=== PATIENT | male | born 1965 | race Caucasian/White ===

== ENCOUNTER 2017-07-23 19:07 | Emergency (ER) | payer SELFPAY ==
[~2017-07-23] VITALS: Ht 170.2 cm; Wt 79.0 kg
[2017-07-23 19:38] VITALS: Ht 170.2 cm; Wt 79.0 kg
[2017-07-23] MEDS ORDERED: IBUP-1542 PO (21:33)
[2017-07-23] MEDS ORDERED: ACYC800T57 PO (21:33)
--- NOTE | 2017-07-23 21:41 | ERD ---
ER Documentation Chief Complaint Date/Time DATE: 07/23/17 TIME: 21:35 Chief Complaint rash, rt side pain x3 days. Denies injury. HPI Patient is 52-year-old male with no reported medical history presenting to the emergency department with complaints of rash in his right flank area which wraps around to his back which he has noticed for 3 days. He reports a burning sensation associated with rash. No improvement of symptoms has been seen. He is unsure whether he had chickenpox as a child. He denies fevers, chills, or other symptoms at this time. Symptoms are mild in severity. ROS All systems reviewed and are negative except as per history of present illness. Medications Home Meds Active Scripts Ibuprofen* (Motrin*) 600 Mg Tab, 600 MG PO Q6 Y for PAIN, #30 TAB Prov:JAN LANDON PA-C 07/23/17 Acyclovir* (Zovirax*) 800 Mg Tablet, 800 MG PO 5 TIMES DAILY for 7 Days, #35 TAB Prov:JAN LANDON PA-C 07/23/17 Allergies Allergies: Coded Allergies: No Known Allergy (Unverified , 07/23/17) Physical Exam Vitals Vital Signs Date Time Temp Pulse Resp B/P Pulse Ox O2 Delivery O2 Flow Rate FiO2 07/23/17 19:38 99.8 74 18 148/86 97 Physical Exam Const: Nontoxic, well-appearing male in no acute distress. Head: Atraumatic Eyes: Normal Conjunctiva ENT: Normal External Ears, Nose and Mouth. Skin: There is a macular papular rash which coalesces starting from the right flank area just lateral to the umbilicus which wraps around to the back. There are vesicles and some areas of bullae. Rash does not cross the midline. Ext: No cyanosis, or edema Neur: Awake and alert Psych: Normal Mood and Affect Procedures/MDM 52-year-old male presenting to the emergency department with complaints of rash. History and physical examination is consistent with herpes zoster which is uncomplicated at this time low suspicion for cellulitis, herpes zoster ophthalmicus, sepsis, or other emergent conditions. The patient is stable for outpatient management with a prescription for acyclovir and ibuprofen. The patient is to return immediately for new or worsening symptoms. Advised for close follow-up with the primary care physician within 1-2 days. Departure Diagnosis: Primary Impression: Herpes zoster Herpes zoster complications: without complications Qualified Code: B02.9 - Herpes zoster without complication Condition: Fair Patient Instructions: Shingles (Herpes Zoster) [facility] Usted se jimenez hecho un examen mdico de control que le indica que no est en curt condicin que requiera tratamiento urgente en el Departamento de Emergencia. Un estudio ms profundo y el tratamiento de dempsey condicin pueden esperar sin ningn riesgo hasta que usted sea atendida/o en el consultorio de dempsey mdico o curt cl herson. Es responsabilidad suya arreglar curt yanet para el seguimiento del anam. MANEJO DE CONDICIONES NO URGENTES EN EL FUTURO 1) Si usted tiene un mdico de atencin primaria: Usted debera llamar a dempsey mdico de atencin primaria antes de venir al departamento de emergencia. Despus de las horas de consultorio, dempsey doctor o dempsey asociado/a est disponible por telfono. El mdico o enfermero de alaina en el servicio telefnico puede asesorarle por baltazar medio para atender el problema, o anam contrario se puede programar curt yanet. 2) Si usted no tiene un mdico de atencin primaria: Llame al mdico o clnica de referencia que aparece abajo jackie las horas de consultorio para hacer curt yanet para que le vean. CLINICAS: [facility] [phone] [facility] [phone] [facility] [phone] [facility]. [place] [phone] [place] [phone] [facility]. [phone] Additional Instructions: No mas mejor en 2-3 marques, regresar. Mas peor en 24 horas, regresear rapidamente. Ir a doctor primario in 5-7 marques. Usar instrucciones cuando dee medicamento. JAN LANDON PA-C Jul 23, 2017 21:41
== END 2017-07-23 21:45 | disposition home or self-care (01) ==
LOC: FTE 19:07
DX: B02.9 Zoster without complications (principal)
CPT/HCPCS: 99283